=== PATIENT | female | born 1965 ===

== ENCOUNTER 2017-01-12 08:35 | Day surgery (SDC) | payer OTHER ==
[2017-01-12] MEDS ORDERED: Lactated Ringer's 500 ML IV ONE (08:45)
[2017-01-12] MEDS ORDERED: Lidocaine 2% MPF (5 ml) Inj ONE (09:05)
[2017-01-12] MEDS ORDERED: Propofol 10 mg/ml Inj (20 ML) ONE (09:05)
[2017-01-12 09:31] VITALS: TEMP 97.2; O2SAT 99
[2017-01-12 09:45] VITALS: BP 112/72; PULSE 72; RESP 14
== END 2017-01-12 09:46 | disposition home or self-care (01) ==
LOC: H.ENDO 08:35
PROVIDERS: ATTEND Internal Medicine Gastroenterology
DX: Z12.11 Encounter for screening for malignant neoplasm of colon (principal); K64.8 Other hemorrhoids
CPT/HCPCS: G0121; J2704; J7120